=== PATIENT | male | born 1975 | race African-American/Black ===

== ENCOUNTER → 2018-11-04 | Day surgery (SDC) | payer OTHER ==
[~2018-11-04] MED LIST: DOCUSATE SOD100 M2 PO
[2018-11-04 10:41] VITALS: BP 132/73
== END | disposition home or self-care (01) | DRG 352 ==
LOC: ORM 07:32
PROVIDERS: ATTEND Surgery
PROC: 0YU64JZ Supplement Left Inguinal Region with Synthetic Substitute, Percutaneous Endoscopic Approach (ICD-10-PCS; principal; 2018-11-04)
DX: K40.90 Unilateral inguinal hernia, without obstruction or gangrene, not specified as recurrent (principal); D17.6 Benign lipomatous neoplasm of spermatic cord
CPT/HCPCS: C1781; C9290; J2710